=== PATIENT | female | born 1960 | race Two or more races ===

== ENCOUNTER 2020-07-04 11:31 | Outpatient (REF) | payer OTHER, SELFPAY ==
[2020-07-04 14:59] LABS: Alanine Aminotransferase 22 U/L (0-31); Albumin Level 4.5 g/dL (3.5-5.0); Alkaline Phosphatase 86 U/L (39-117); Anion Gap 14 (12-20); Aspartate Amino Transferase 24 U/L (5-31); Bilirubin Total 0.6 mg/dL (0.0-1.0); Blood Urea Nitrogen 13 mg/dL (9-16); Carbon Dioxide 28 mmol/L (22-29); Chloride 104 mmol/L (96-108); Cholesterol 159 mg/dL; Estimated Glomerular Filt Rate > 60; Glucose Fasting 75 mg/dL (60-99); HDL Cholesterol 49 mg/dL; LDL Cholesterol Calculated 79 mg/dl; Potassium 3.8 mmol/L (3.3-5.1); Sodium 142 mmol/L (135-145); Total Protein 7.3 g/dL (6.5-8.0); Triglycerides 159 mg/dL
== END 2020-07-04 11:32 | disposition home or self-care (01) ==
LOC: HO.10HDL 11:31
PROVIDERS: Visit Provider Internal Medicine
DX: E66.9 Obesity, unspecified (principal); E06.3 Autoimmune thyroiditis
CPT/HCPCS: 36415; 80053; 80061; 84443

== ENCOUNTER 2021-04-04 09:40 | Outpatient (REF) | payer OTHER, SELFPAY | END 2021-04-04 09:41 | disposition home or self-care (01) | LOC: HO.10HDL 09:40 | PROVIDERS: Visit Provider Internal Medicine | DX: E06.3 Autoimmune thyroiditis (principal) | CPT/HCPCS: 36415; 84443 ==

== ENCOUNTER 2021-06-09 08:16 | Outpatient (REF) | payer OTHER, SELFPAY ==
--- NOTE | ~2021-06-09 | MM_ITS ---
EXAMINATION: BONE DENSITOMETRY CLINICAL INDICATION: Asymptomatic menopausal state. COMPARISON: This is the patient's baseline examination. TECHNIQUE: Using a Smart[employer]ault DXA System (software version: 13.1) manufactured by [employer], dual-energy x-ray absorptiometry was performed of the lumbar spine and left hip. The images are of good technical quality. Summary results are attached. FINDINGS: AP SPINE L1-L4: BMD 1.133 g/cm2, Z-score 0.3, T-score -0.4, normal. LEFT FEMUR, NECK: BMD 0.782 g/cm2, Z-score -1.0, T-score -1.8, osteopenia. LEFT FEMUR, TOTAL: BMD 0.808 g/cm2, Z-score -1.1, T-score -1.6, osteopenia. IDENTIFIED RISK FACTORS: Rheumatoid arthritis. Secondary osteoporosis (hyperthyroid, early menopause). Hysterectomy. HISTORY OF FRACTURE: None listed. MEDICATIONS: None listed. MM/XR DEXA axial skeleton IMPRESSION: 1. DIAGNOSIS: Osteopenia based on the lowest T-score value of -1.8 in the femoral neck applying World Health Organization criteria. 2. 10-YEAR FRACTURE RISK PREDICTION, FRAX: Major osteoporotic fracture (clinical spine, forearm, hip or shoulder) 6.3%. Hip fracture 0.8%. 3. Treatment Recommendations: NOF guidelines recommend consideration for treatment in postmenopausal women and men age 50 and older presenting with the following: -A hip or vertebral (clinical or morphometric) fracture. -T-score less than or equal to -2.5 at the femoral neck or spine after appropriate evaluation to exclude secondary causes. -Low bone mass at the hip or spine and a 10-year fracture probability by FRAX of greater than or equal to 3% for hip fracture or greater than or equal to 20% for major osteoporotic fracture based on the [place] adapted WHO algorithm. 4. Other Recommendations: All treatment decisions require clinical judgment and consideration of individual patient factors, including patient preferences, comorbidities, previous drug use, risk factors not captured in the FRAX model (e.g. frailty, falls, vitamin D deficiency, increased bone turnover, interval significant decline in bone density) and possible under or overestimation of fracture risk by FRAX. Additional medical evaluation for secondary cause of low bone mineral density may be appropriate. FUTURE SCAN RECOMMENDATION: People with diagnosed cases of osteoporosis or at high risk for fracture should have regular bone mineral density tests. For patients eligible for Medicare, routine testing is allowed once every 2 years. The testing frequency can be increased to one year for patients who have rapidly progressing disease, those who are receiving or discontinuing medical therapy to restore bone mass, or have additional risk factors.
== END 2021-06-09 08:17 | disposition home or self-care (01) ==
LOC: HO.MAMMO 08:16
PROVIDERS: Visit Provider Internal Medicine
DX: Z13.820 Encounter for screening for osteoporosis (principal); M06.9 Rheumatoid arthritis, unspecified; E05.90 Thyrotoxicosis, unspecified without thyrotoxic crisis or storm; Z90.710 Acquired absence of both cervix and uterus; Z78.0 Asymptomatic menopausal state
CPT/HCPCS: 77080

== ENCOUNTER 2021-07-06 08:08 | Outpatient (REF) | payer OTHER, SELFPAY ==
--- NOTE | ~2021-07-06 | MM_ITS ---
EXAMINATION: MM SCREENING DIGITAL BREAST TOMOSYNTHESIS, BILATERAL CLINICAL INFORMATION: Screening. Asymptomatic. The lifetime risk of breast cancer based on the Tyrer-Cuzick Model is 5%. COMPARISON: Mammography: 10/21/2018, 09/12/2017, 09/09/2014 TECHNIQUE: Digital breast tomosynthesis is performed in both the craniocaudal and mediolateral oblique views along with computer-aided detection (CAD). Synthesized 2D images are generated from the tomosynthesis. Additional left MLO view is provided. FINDINGS: There are scattered areas of fibroglandular density (ACR BI-RADS breast composition Category b). There are no significant masses, abnormal calcifications, or other abnormalities. Parenchymal pattern is similar to prior studies. There are scattered shifting fibroglandular parenchymal densities overall similar to prior studies. No developing density or architectural abnormality. The axilla and skin contours are unremarkable. MM/MM tomosynthesis screening BI IMPRESSION: No mammographic evidence of malignancy. ASSESSMENT: BI-RADS 1: Negative RECOMMENDATION: Routine annual mammography screening. This patient's information was entered into a reminder system with a target due date for their next mammogram.
== END 2021-07-06 08:09 | disposition home or self-care (01) ==
LOC: HO.MAMMO 08:08
PROVIDERS: PCP Internal Medicine; Visit Provider Internal Medicine
DX: Z12.31 Encounter for screening mammogram for malignant neoplasm of breast (principal)
CPT/HCPCS: 77063; 77067

== ENCOUNTER → 2021-09-29 08:24 | Outpatient (BNVA) | payer OTHER, SELFPAY | PROVIDERS: PCP Internal Medicine; Referring Provider Internal Medicine; Visit Provider Nurse Practitioner Family | DX: Z12.11 Encounter for screening for malignant neoplasm of colon (principal) | CPT/HCPCS: 99202; 99212 ==

== ENCOUNTER 2021-10-12 09:12 | Outpatient (REF) | payer OTHER, SELFPAY ==
[2021-10-12 10:15] LABS: Alanine Aminotransferase 15 U/L (0-31); Albumin Level 4.3 g/dL (3.5-5.0); Alkaline Phosphatase 81 U/L (39-117); Anion Gap 10 (12-20); Aspartate Amino Transferase 20 U/L (5-31); Bilirubin Total 0.5 mg/dL (0.0-1.0); Blood Urea Nitrogen 11 mg/dL (9-16); Calcium 9.1 mg/dL (8.4-10.2); Carbon Dioxide 26 mmol/L (22-29); Chloride 107 mmol/L (96-108); Cholesterol 135 mg/dL; Estimated Glomerular Filt Rate > 60; Glucose Fasting 91 mg/dL (60-99); HDL Cholesterol 42 mg/dL; LDL Cholesterol Calculated 59 mg/dl; Sodium 139 mmol/L (135-145); Total Protein 6.9 g/dL (6.5-8.0); Triglycerides 170 mg/dL
[2021-10-12 10:51] LABS: Thyroid Stimulating Hormone 2.45 uIU/mL (0.32-4.0)
== END 2021-10-12 09:13 | disposition home or self-care (01) ==
LOC: HO.LAB 09:12
PROVIDERS: PCP Internal Medicine; Visit Provider Internal Medicine
DX: Z00.00 Encounter for general adult medical examination without abnormal findings (principal); E06.3 Autoimmune thyroiditis
CPT/HCPCS: 36415; 80053; 80061; 84443

== ENCOUNTER → 2022-02-19 08:14 | Outpatient (BNVA) | payer OTHER, SELFPAY | PROVIDERS: PCP Internal Medicine; Referring Provider Internal Medicine; Visit Provider Nurse Practitioner Family | DX: Z01.818 Encounter for other preprocedural examination (principal); R11.0 Nausea | CPT/HCPCS: 99212 ==

== ENCOUNTER 2022-03-01 08:44 | Outpatient (REF) | payer OTHER, SELFPAY ==
[2022-03-01 11:32] LABS: Thyroid Stimulating Hormone 3.87 uIU/mL (0.32-4.0)
== END 2022-03-01 08:45 | disposition home or self-care (01) ==
LOC: HO.10HDL 08:44
PROVIDERS: Visit Provider Internal Medicine
DX: E55.9 Vitamin D deficiency, unspecified (principal); E06.3 Autoimmune thyroiditis
CPT/HCPCS: 36415; 82306; 84443

== ENCOUNTER 2022-04-23 07:38 | Day surgery (SDC) | payer OTHER, SELFPAY ==
[2022-04-17 15:08] VITALS: BMI 36.2
--- NOTE | 2022-04-20 13:14 | HO.ANESPROP2 ---
Documented by User: Theodora Alvarado NP 04/20/22 13:15 HPI - Anesthesia Eval Consult details Narrative: 61yo F for Colonoscopy PMFSH Active Problems Active Problems: All Active Problems (Updated 10/12/21 @ 09:53 by Anu Andrea MD) Osteopenia (Acute) Hypovitaminosis D (Acute) Postmenopausal (Acute) Encounter for physical examination (Acute) Obese (Acute) Allergic rhinitis (Acute) Autoimmune thyroiditis (Acute) Past Medical History Medical History Allergic rhinitis Autoimmune thyroiditis Encounter for physical examination Hypovitaminosis D Obese Osteopenia Postmenopausal Family History Family History Father No problems noted. Mother Hypertension Diabetes Sister In good health Son In good health Daughter In good health Surgical History Surgical History H/O colonoscopy History of pterygium excision History of surgery History of unilateral salpingectomy Social History Social History Housing: House Alcohol intake: never Patient Tobacco Use Status: Former Tobacco user Tobacco use type: Cigarette Smoked in Last 30 Days: No e-Cigarette/Vaping Use: Never Used Second Hand Smoke Exposure: No Use of substances other than those prescribed or required for medical reasons: No Are you DNR?: No Advance Directives: No Advance Directives Information Provided: Yes service: No Current occupational status: disabled Cognitive needs: No Hearing needs: No Vision needs: No Meds Allergies Allergy/AdvReac Type Severity Reaction Status Date / Time aspirin Allergy Intermediate swelling Verified 04/23/22 07:48 diclofenac Allergy Intermediate palpitation Verified 04/23/22 07:48 s garlic Allergy Intermediate Swelling Verified 04/23/22 07:48 latex Allergy Intermediate Rash Verified 04/23/22 07:48 Exam Exam Date and Time: April 20, 2022 1314 Height,Weight and Vital Signs: Height 5 ft 1 in Weight 87.09 kg Pertinent Lab Results Pertinent Lab Results: Laboratory Tests 10/12/21 09:27 Sodium 139 Potassium 4.0 Chloride 107 Carbon Dioxide 26 BUN 11 Creatinine 0.64 Assessment and Plan Assessment Anesthesia Assessment: Chart Reviewed Documented by User: Jeovanny Hutchison MD 04/23/22 08:35 PMF Past Medical History Medical History Allergic rhinitis Autoimmune thyroiditis Encounter for physical examination Hypovitaminosis D Obese Osteopenia Postmenopausal Family History Family History Father No problems noted. Mother Hypertension Diabetes Sister In good health Son In good health Daughter In good health Family history of problems with anesthesia: No Surgical History Surgical History H/O colonoscopy History of pterygium excision History of surgery History of unilateral salpingectomy History of Problems with Anesthesia: No Social History Social History Housing: House Alcohol intake: never Patient Tobacco Use Status: Former Tobacco user Tobacco use type: Cigarette Smoked in Last 30 Days: No e-Cigarette/Vaping Use: Never Used Second Hand Smoke Exposure: No Use of substances other than those prescribed or required for medical reasons: No Are you DNR?: No Advance Directives: No Advance Directives Information Provided: Yes service: No Current occupational status: disabled Cognitive needs: No Hearing needs: No Vision needs: No Meds Allergies Allergy/AdvReac Type Severity Reaction Status Date / Time aspirin Allergy Intermediate swelling Verified 04/23/22 07:48 diclofenac Allergy Intermediate palpitation Verified 04/23/22 07:48 s garlic Allergy Intermediate Swelling Verified 04/23/22 07:48 latex Allergy Intermediate Rash Verified 04/23/22 07:48 Exam Airway Mallampati Class: II TM Dist: >3cm Neck ROM: Full Heart: rrr Lungs: clear Assessment and Plan Final Anesthetic Review Family History of Problems with Anesthesia: No History of Problems with Anesthesia: No NPO: Yes ASA Class: II Final Preanesthetic Review: No Changes in Pt Med Stat, Meds/Allgs Chart Reviewed, Consent Obtained/Reviewed and Anes Risks/Benef Reviewed Patient Risk: Intermediate Procedure Risk: Low Anesthetic Plan Anesthetic Plan: MAC: Disposition: Standard PACU
--- NOTE | 2022-04-23 07:46 | MHC.SHP ---
Pre-Procedural Eval Section A Date of Service: 04/23/22 The patient is an INPATIENT: No The History & Physical has been completed within 30 days and I have reviewed it.: No Section B Chief Complaint: screening Relevant Family History (Specify if Yes): No Relevant Social History: None Present Medications: see Short Stay Collaborative assessment Medical History: Significant History (Allergic rhinitis Autoimmune thyroiditis Encounter for physical examination Hypovitaminosis D Obese Osteopenia Postmenopausal) History of Previous Operations: Relevant previous surgery/procedure and date(s) (H/O colonoscopy History of pterygium excision History of surgery History of unilateral salpingectomy) Allergies: Allergies Allergy/AdvReac Type Severity Reaction Status Date / Time aspirin Allergy Intermediate swelling Verified 03/01/22 08:21 diclofenac Allergy Intermediate palpitation Verified 03/01/22 08:21 s garlic Allergy Intermediate Swelling Verified 03/01/22 08:21 latex Allergy Intermediate Rash Verified 03/01/22 08:21 Review of Systems Sugical H&P ROS: Negative: Constitution, Cardiovascular, Respiratory and Gastrointestinal Exam Surgical H&P Exam: Normal: Heart, Normal: Lungs, Normal: Extremities and Normal: Abdomen Plan Diagnosis/Plan: Unchanged I have reviewed the history and physical and performed a pertinent physical examination on my patient. No changes have occurred unless specified. Time Spent With Patient Time: Total time managing care of this patient today ____ minutes.
--- NOTE | 2022-04-23 07:47 | P.OP_ITS ---
Operative Note Operative Note Date of Service: 04/23/22 Narrative: Pre-op diagnosis: Colon cancer screening Post-op diagnosis:?other ( DIVERTICULOSIS, HEMORRHOIDS) Surgeon: Herrera Nicholas MD Anesthesia:?MAC COLONOSCOPY TILL CECUM Consent: Indications for the procedure and potential complications of bleeding, perforation, reaction to medications and missed diagnosis were discussed with the patient and informed consent was obtained. Instrument: Olympus PCF H 190 L variable stiffness pediatric colonoscope Monitoring: Vital signs and clinical assessment, intermittent blood pressure monitoring, continuous EKG monitoring, Pulse oximetry and Carbon Dioxide monitoring were done throughout the procedure. Colon withdrawl time was 8 minutes. Procedure: The patient was placed in the left lateral decubitis position and pre-procedure medications were administered. After a digital rectal examination of the ano-rectum, the video colonoscope was inserted into the rectum and advanced through the colon to the cecum. The colonoscope was slowly withdrawn in a retrograde panoramic fashion and the colon mucosa was carefully examined including a retroflexed view of the rectum. Findings and interventions are described below. Procedure Difficulty: Without difficulty Findings: Terminal Ileum: Not evaluated Cecum: Normal Ascending Colon: Normal Transverse Colon: Normal Descending Colon: Normal Sigmoid Colon: Moderate diverticulosis Rectum: Normal Ano-rectum: Small internal hemorrhoids Colon preparation: Good after some irrigation Impression and Post Procedure Diagnosis: Colonoscopy Findings: No polyps were detected Moderate diverticulosis seen in the sigmoid colon Small hemorrhoids on retroflexed exam. Plan: Patient has an appointment on 05/08/22 in the [facility] with Gina Tomlinson FNP- [facility]. Repeat Colonoscopy in 10 years. Above findings were reviewed with the patient and diverticulosis handout was given in the discharge area
--- NOTE | 2022-04-23 07:47 | PM.OP ---
Brief Operative Note Date of Service: 04/23/22 Pre-op diagnosis: Colon cancer screening Post-op diagnosis: other ( DIVERTICULOSIS, HEMORRHOIDS) Procedure: COLONOSCOPY TO CECUM Surgeon: Herrera Nicholas MD Anesthesia: MAC Was an Petroleum Engineering Professor used for this Procedure?: Yes Petroleum Engineering Professor: Jada Dominique Estimated blood loss (mL): 0 Pathology: none sent Condition: stable Disposition: PACU
[2022-04-23 07:50] VITALS: BMI 35.1
[2022-04-23 08:05] VITALS: BP 158/75; PULSE 75; RESP 16; TEMP 36.3; O2SAT 99
[2022-04-23] MEDS: Sodium Phosphate,Mono-Dibasic 133 ML ENEMA PR (08:05)
--- NOTE | 2022-04-23 08:30 | PC.NURSE ---
Patient arrived stating she Ate cheetos, doritos, and [place] cookies all day yesterday because she forgot . Enema administered as ordered by Dr. Nicholas and patient rested on left side for 10 minutes. Patient unable to void after enema administration, states I dont have to go . Okay to proceed with procedure per Dr. Nicholas.
[2022-04-23] MEDS: Lactated Ringers 1,000 ML 100 ML IVCONT (08:31)
[2022-04-23 09:09] VITALS: BP 102/59; PULSE 66; RESP 16; TEMP 36.4; O2SAT 97
[2022-04-23 09:22] VITALS: BP 123/72; PULSE 64; RESP 18; TEMP 36.2; O2SAT 99
== END 2022-04-23 10:07 | disposition home or self-care (01) ==
PROVIDERS: PCP Internal Medicine; Visit Provider Internal Medicine Gastroenterology
PROC: 0DJD8ZZ Inspection of Lower Intestinal Tract, Via Natural or Artificial Opening Endoscopic (ICD-10-PCS; CPT 45378; principal; 2022-04-23 08:30)
DX: Z12.11 Encounter for screening for malignant neoplasm of colon (principal); K57.30 Diverticulosis of large intestine without perforation or abscess without bleeding; K64.8 Other hemorrhoids; J30.9 Allergic rhinitis, unspecified; E06.3 Autoimmune thyroiditis; E55.9 Vitamin D deficiency, unspecified; M85.80 Other specified disorders of bone density and structure, unspecified site; E66.9 Obesity, unspecified; Z68.35 Body mass index [BMI] 35.0-35.9, adult; Z79.51 Long term (current) use of inhaled steroids; Z79.899 Other long term (current) drug therapy; Z88.8 Allergy status to other drugs, medicaments and biological substances; Z91.040 Latex allergy status; Z87.891 Personal history of nicotine dependence
CPT/HCPCS: 45378

== ENCOUNTER 2022-07-12 08:12 | Outpatient (REF) | payer OTHER, SELFPAY ==
--- NOTE | ~2022-07-12 | MM_ITS ---
EXAMINATION: MM SCREENING DIGITAL BREAST TOMOSYNTHESIS, BILATERAL CLINICAL INFORMATION: Screening. Asymptomatic. The lifetime risk of breast cancer based on the Tyrer-Cuzick Model is 7%. COMPARISON: Mammography: September 05, 2021 and studies dating back to September 09, 2014 TECHNIQUE: Digital breast tomosynthesis is performed in both the craniocaudal and mediolateral oblique views along with computer-aided detection (CAD). Synthesized 2D images are generated from the tomosynthesis. FINDINGS: There are scattered areas of fibroglandular density (ACR BI-RADS breast composition Category b). There are no significant masses, abnormal calcifications, or other abnormalities. Intramammary lymph node seen about the mid lateral left breast. MM/MM tomosynthesis screening BI IMPRESSION: No significant changes ASSESSMENT: BI-RADS 1: Negative RECOMMENDATION: Routine annual mammography screening. This patient's information was entered into a reminder system with a target due date for their next mammogram.
== END 2022-07-12 08:13 | disposition home or self-care (01) ==
LOC: HO.MAMMO 08:12
PROVIDERS: PCP Internal Medicine; Visit Provider Internal Medicine
DX: Z12.31 Encounter for screening mammogram for malignant neoplasm of breast (principal)
CPT/HCPCS: 77063; 77067

== ENCOUNTER 2022-10-25 08:41 | Outpatient (REF) | payer OTHER, SELFPAY ==
[2022-10-25 12:28] LABS: Thyroid Stimulating Hormone 3.53 uIU/mL (0.32-4.0); Vitamin D 25-OH Total 22.8 ng/mL (>30)
[2022-10-25 12:29] LABS: Anion Gap 8 (12-20)
[2022-10-25 12:34] LABS: Alanine Aminotransferase 18 U/L (0-31); Albumin Level 4.2 g/dL (3.5-5.0); Alkaline Phosphatase 81 U/L (39-117); Aspartate Amino Transferase 24 U/L (5-31); Bilirubin Total 0.6 mg/dL (0.0-1.0); Blood Urea Nitrogen 11 mg/dL (9-16); Calcium 8.9 mg/dL (8.4-10.2); Carbon Dioxide 30 mmol/L (22-29); Chloride 109 mmol/L (96-108); Cholesterol 151 mg/dL; Estimated Glomerular Filt Rate > 60; Glucose Fasting 81 mg/dL (60-99); HDL Cholesterol 53 mg/dL; LDL Cholesterol Calculated 83 mg/dl; Potassium 3.5 mmol/L (3.3-5.1); Sodium 143 mmol/L (135-145); Total Protein 7.2 g/dL (6.5-8.0); Triglycerides 76 mg/dL
== END 2022-10-25 08:42 | disposition home or self-care (01) ==
LOC: HO.10HDL 08:41
PROVIDERS: Visit Provider Internal Medicine
DX: Z00.00 Encounter for general adult medical examination without abnormal findings (principal); E06.3 Autoimmune thyroiditis; E55.9 Vitamin D deficiency, unspecified
CPT/HCPCS: 36415; 80053; 80061; 82306; 84443

== ENCOUNTER 2022-12-11 16:03 | Outpatient (AMB) | payer OTHER, SELFPAY ==
--- NOTE | 2022-12-11 16:20 | MHC.PC.OV ---
Vital Signs 12/11/22 16:21 12/11/22 19:04 Height 5 ft 1 in Weight 188 lb 8 oz BMI 35.6 BP 152/88 H 150/90 H Blood Pressure Location Lt brachial Lt brachial Position Sitting Sitting Pulse 65 Pulse Source Pulse Oximeter Pulse Oximetry (%) 98 Oxygen Delivery Method Room Air Intake Visit Reasons: thyroid Intake Note: Pt is for thyroid F/U Director Of Corporate Sponsorships Required: No Accompanied by: Self / Same As Patient Allergies aspirin Allergy (Intermediate, Verified 12/11/22 16:35) swelling diclofenac Allergy (Intermediate, Verified 12/11/22 16:35) palpitations garlic Allergy (Intermediate, Verified 12/11/22 16:35) Swelling latex Allergy (Intermediate, Verified 12/11/22 16:35) Rash Medication List - Last Reconciled 12/11/22 by Anu Andrea MD calcium carbonate 1,000 mg (2 x 500 mg calcium (1,250 mg)) PO DAILY 90 days cholecalciferol (vitamin D3) 25 mcg PO DAILY 90 days fluticasone propionate 50 mcg/actuation (Allergy Relief (fluticasone)) 1 spray intranasal DAILY 30 days levothyroxine 50 mcg PO QAM Tobacco use date assessed: 06/07/22 Dental Screening Dental Screen Date: 12/11/22 Did you have a dental visit in the last 12 months?: No Did you have a dental problem in the last 6 months where you did not have access to dental care?: No Was dental information given to patient?: Patient has dentist HPI HPI Comments History of Present Illness Details This is a 62-year-old female with autoimmune thyroiditis and osteopenia that comes today for follow-up on her conditions. TSH is normal. On calcium with vitamin-D for osteopenia. Denies any chest pain or shortness of breath. [facility] Medical History (Updated 12/11/22 @ 16:40 by Anu Andrea MD) Allergic rhinitis Autoimmune thyroiditis Encounter for physical examination Hypovitaminosis D Obese Osteopenia Postmenopausal Surgical History H/O colonoscopy History of pterygium excision History of surgery History of unilateral salpingectomy Family History Father No problems noted. Mother Hypertension Diabetes Sister In good health Son In good health Daughter In good health Social History Housing: House Alcohol intake: never Patient Tobacco Use Status: Former Tobacco user Tobacco use type: Cigarette e-Cigarette/Vaping Use: Never Used Second Hand Smoke Exposure: No service: No Current occupational status: disabled Cognitive needs: No Hearing needs: No Vision needs: No Questionnaire PHQ-9 Over the last 2 weeks, how often have you been bothered by any of the following problems? 1. Little interest or pleasure in doing things: not at all 2. Feeling down, depressed, or hopeless: not at all 3. Trouble falling or staying asleep, or sleeping too much: not at all 4. Feeling tired or having little energy: not at all 5. Poor appetite or overeating: not at all 6. Feeling bad about yourself - or that you are a failure or have let yourself or your family down: not at all 7. Trouble concentrating on things, such as reading the newspaper or watching television: not at all 8. Moving or speaking so slowly that other people could have noticed. Or the opposite - being so fidgety or restless that you have been moving around a lot more than usual: not at all 9. Thoughts that you would be better off or of hurting yourself in some way: not at all Total score: 0 Depression Screening Interpretation: Negative 70451 - PHQ-9 Billing: Yes Source: Developed by Drs. Kodak Thornton, Arianna Calle, Beny Smith and colleagues, with an educational sivakumar from [employer]. Thrive Questionnaire Date Thrive assessed: 12/11/22 I am a: Patient What is your living situation today?: I have a steady place to live Within the past 12 months, did the food you bought not last and you didn't have the money to get more?: Never true Within the past 12 months, did you worry whether your food would run out before you got money to buy more?: Never true Do you have trouble paying for medicines?: No Do you have trouble getting transportation to medical appointments?: No Do you have trouble paying your heating and electricity bill?: No Do you have trouble taking care of your child, family member or friend?: No Do you have trouble with day-to-day activities such as bathing, preparing meals, shopping, managing finances, etc.?: No Are you currently unemployed and looking for a job?: No Are you interested in more education?: No Currently or been in a relationship where the following occur: no concerns reported AUDIT C Alcohol Use Questionnaire (AUDIT-C) 1. How often do you have a drink containing alcohol?: Never 3. How often do you have six or more drinks on one occasion?: Never Total Score: 0 Score Reviewed/Action Taken: No MO-7 AMB Questionnaire MO-7 Date MO - 7 assessed: 12/11/22 Feeling nervous, anxious, or on edge: 0 = Not at all Not being able to stop or control worryin = Not at all Worrying too much about different things: 0 = Not at all Trouble relaxin = Not at all Being so restless that it is hard to sit still: 0 = Not at all Becoming easily annoyed or irritable: 0 = Not at all Feeling afraid as if something awful might happen: 0 = Not at all Total MO-7 score (0-4 normal; 5-9 mild; 10-14 moderate; 15-21 severe): 0 Source: Developed by Drs. Kodak Thornton, Arianna Calle, Beny Smith and colleagues, with an educational sivakumar from [employer]. MO-7 Assessment Billing MO-7 Assessment Tool: MO-7 Assessment 80389 Review of Systems Const All systems reviewed & are unremarkable except as noted in HPI and below Eyes Reports no additional complaints, Denies change in vision and Denies other visual disturbances Card Denies chest pain at rest, Denies chest pain with activity, Denies edema, Denies irregular heart rhythm, Denies claudication, Denies dyspnea, Denies dyspnea on exertion, Denies orthopnea, Denies paroxysmal nocturnal dyspnea and Denies slow heart rate Resp Denies cough, Denies dyspnea and Denies dyspnea on exertion GI Denies abdominal pain, Denies change in bowel habits, Denies excessive flatus, Denies nausea and Denies vomiting Denies urinary incontinence, Denies urinary hesitancy and Denies urinary urgency Musc Denies abnormal gait, Denies atrophy, Denies deformity and Denies limited range of motion Skin/Breast Denies bleeding lesions, Denies changing lesions and Denies rash Neuro Denies abnormal gait and Denies lack of coordination Physical exam (Primary Care) Vital Signs: Last Vital Signs Pulse 65 12/11/22 16:21 BP 152/88 H 12/11/22 16:21 Pulse Ox 98 12/11/22 16:21 Oxygen Delivery Method Room Air 12/11/22 16:21 BMI result Body Mass Index 35.6 Tobacco/Smoking Status: Tobacco use Status Tobacco use date assessed 06/07/22 12/11/22 16:21 Patient Tobacco Use Status Former Tobacco user 12/11/22 16:21 Tobacco use type Cigarette 12/11/22 16:21 e-Cigarette/Vaping Use Never Used 12/11/22 16:21 PHQ-9: PHQ-9 Score PHQ-9: Total score 0 12/11/22 16:39 Depression Screening Interpretation: Negative Thrive Assessment: Date of Thrive Assessment Date Thrive assessed 12/11/22 12/11/22 16:29 Currently or been in a relationship where the following occur: no concerns reported Eyes General: appearance normal, both eyes and all related structures Eyelids: Yes eyelids normal Conjunctivae: conjunctivae normal Neck Neck: Yes normal visual inspection and Yes supple Resp Effort & Inspection: normal respiratory effort Auscultation: clear to auscultation bilaterally Cardio Jugular venous distension: no JVD Rate: regular rate Rhythm: regular rhythm Heart sounds: S1 normal heart sound present and S2 normal heart sound present Extrem General: Yes full ROM Assessment and Plan Assessment & Plan (1) Autoimmune thyroiditis: Code(s): E06.3 - Autoimmune thyroiditis Plan: Continue levothyroxine. Monitor TSH. (2) Osteopenia: Code(s): M85.80 - Other specified disorders of bone density and structure, unspecified site Plan: Continue calcium and vitamin-D. Orders: Orders FL barium swallow modified Today R13.10 - Dysphagia, unspecified Comprehensive Moran. Panel Fast 6 Months E66.9 - Obesity, unspecified Lipid Panel 6 Months E66.9 - Obesity, unspecified Thyroid Stimulating Hormone 6 Months E06.3 - Autoimmune thyroiditis Vitamin D 25-OH Total 6 Months E55.9 - Vitamin D deficiency, unspecified Coding Level of Care Code Est Pt Level 3 (78836) Diagnoses Autoimmune thyroiditis E06.3 Osteopenia M85.80 Additional Codes MO-7 Assessment Billing - MO-7 Assessment Tool: MO-7 Assessment 12029 ([id number]) Time Spent (min) 18
[2022-12-11 16:21] VITALS: BP 152/88; PULSE 65; O2SAT 98; BMI 35.6
[2022-12-11 19:04] VITALS: BP 150/90
== END 2022-12-11 16:45 | disposition home or self-care (01) ==
LOC: HO.HMGH 16:04
PROVIDERS: PCP Internal Medicine; Visit Provider Internal Medicine
DX: E06.3 Autoimmune thyroiditis (principal); M85.80 Other specified disorders of bone density and structure, unspecified site
CPT/HCPCS: 99213

== ENCOUNTER 2023-06-17 09:27 | Outpatient (AMB) | payer OTHER, SELFPAY ==
--- NOTE | 2023-06-17 09:33 | MHC.PC.OV ---
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 Accompanied by: Self / Same As Patient Allergies aspirin Allergy (Intermediate, Verified 06/17/23 09:52) swelling diclofenac Allergy (Intermediate, Verified 06/17/23 09:52) palpitations garlic Allergy (Intermediate, Verified 06/17/23 09:52) Swelling latex Allergy (Intermediate, Verified 06/17/23 09:52) Rash Medication List - Last Reconciled 06/17/23 by Anu Andrea MD calcium carbonate 1,000 mg (2 x 500 mg calcium (1,250 mg)) PO DAILY 90 days cholecalciferol (vitamin D3) 25 mcg PO DAILY 90 days fluticasone propionate 50 mcg/actuation (Allergy Relief (fluticasone)) 1 spray intranasal DAILY 30 days levothyroxine 50 mcg PO QAM Tobacco use date assessed: 06/17/23 Dental Screening Dental Screen Date: 06/17/23 Did you have a dental visit in the last 12 months?: No Did you have a dental problem in the last 6 months where you did not have access to dental care?: No Was dental information given to patient?: Patient has dentist HPI HPI Comments History of Present Illness Details This is a 62-year-old female that comes for her physical exam. Last mammogram done 2022. Last colonoscopy done 2021. Has hysterectomy and no need for Pap smears. Last bone density was 2021 and this will be repeated. No chest pain or shortness of breath. [facility] Medical History Osteopenia Hypovitaminosis D Postmenopausal Encounter for physical examination Obese Allergic rhinitis Autoimmune thyroiditis Surgical History H/O colonoscopy History of pterygium excision History of surgery History of unilateral salpingectomy Family History Father No problems noted. Mother Hypertension Diabetes Sister In good health Son In good health Daughter In good health Social History Housing: House Alcohol intake: never Patient Tobacco Use Status: Former Tobacco user Tobacco use type: Cigarette e-Cigarette/Vaping Use: Never Used Second Hand Smoke Exposure: No service: No Current occupational status: disabled Cognitive needs: No Hearing needs: No Vision needs: No Questionnaire PHQ-9 Over the last 2 weeks, how often have you been bothered by any of the following problems? 1. Little interest or pleasure in doing things: not at all 2. Feeling down, depressed, or hopeless: not at all 3. Trouble falling or staying asleep, or sleeping too much: not at all 4. Feeling tired or having little energy: not at all 5. Poor appetite or overeating: not at all 6. Feeling bad about yourself - or that you are a failure or have let yourself or your family down: not at all 7. Trouble concentrating on things, such as reading the newspaper or watching television: not at all 8. Moving or speaking so slowly that other people could have noticed. Or the opposite - being so fidgety or restless that you have been moving around a lot more than usual: not at all 9. Thoughts that you would be better off or of hurting yourself in some way: not at all Total score: 0 Depression Screening Interpretation: Negative Depression Screening Done: Yes 68948 - PHQ-9 Billing: Yes Source: Developed by Drs. Kodak Thornton, Arianna Calle, Beny Smith and colleagues, with an educational sivakumar from [employer]. Thrive Questionnaire Date Thrive assessed: 06/17/23 I am a: Patient What is your living situation today?: I have a steady place to live Within the past 12 months, did the food you bought not last and you didn't have the money to get more?: Never true Within the past 12 months, did you worry whether your food would run out before you got money to buy more?: Never true Do you have trouble paying for medicines?: No Do you have trouble getting transportation to medical appointments?: No Do you have trouble paying your heating and electricity bill?: No Do you have trouble taking care of your child, family member or friend?: No Do you have trouble with day-to-day activities such as bathing, preparing meals, shopping, managing finances, etc.?: No Are you currently unemployed and looking for a job?: No Are you interested in more education?: No Please select the resources that you would like help with: None Currently or been in a relationship where the following occur: no concerns reported THRIVE Score: 0 AUDIT C Alcohol Use Questionnaire (AUDIT-C) 1. How often do you have a drink containing alcohol?: Never Total Score: 0 Score Reviewed/Action Taken: No MO-7 AMB Questionnaire MO-7 Date MO - 7 assessed: 06/17/23 Feeling nervous, anxious, or on edge: 0 = Not at all Not being able to stop or control worryin = Not at all Worrying too much about different things: 0 = Not at all Trouble relaxin = Not at all Being so restless that it is hard to sit still: 0 = Not at all Becoming easily annoyed or irritable: 0 = Not at all Feeling afraid as if something awful might happen: 0 = Not at all Total MO-7 score (0-4 normal; 5-9 mild; 10-14 moderate; 15-21 severe): 0 Source: Developed by Drs. Kodak Thornton, Arianna Calle, Beny Smith and colleagues, with an educational sivakumar from [employer]. MO-7 Assessment Billing MO-7 Assessment Tool: MO-7 Assessment 08436 Review of Systems Const All systems reviewed & are unremarkable except as noted in HPI and below Eyes Reports no additional complaints, Denies change in vision and Denies other visual disturbances Card Denies chest pain at rest, Denies chest pain with activity, Denies edema, Denies irregular heart rhythm, Denies claudication, Denies dyspnea, Denies dyspnea on exertion, Denies orthopnea, Denies paroxysmal nocturnal dyspnea and Denies slow heart rate Resp Denies cough, Denies dyspnea and Denies dyspnea on exertion GI Denies abdominal pain, Denies change in bowel habits, Denies excessive flatus, Denies nausea and Denies vomiting Denies urinary incontinence, Denies urinary hesitancy and Denies urinary urgency Musc Denies atrophy, Denies deformity and Denies limited range of motion Physical exam (Primary Care) Vital Signs: Last Vital Signs BP 130/80 06/17/23 09:34 BMI result Body Mass Index 35.1 Tobacco/Smoking Status: Tobacco use Status Tobacco use date assessed 06/17/23 06/17/23 09:47 Patient Tobacco Use Status Former Tobacco user 06/17/23 09:47 Tobacco use type Cigarette 06/17/23 09:47 e-Cigarette/Vaping Use Never Used 06/17/23 09:47 PHQ-9: PHQ-9 Score PHQ-9: Total score 0 06/17/23 09:47 Depression Screening Interpretation: Negative Thrive Assessment: Date of Thrive Assessment Date Thrive assessed 06/17/23 06/17/23 09:47 Currently or been in a relationship where the following occur: no concerns reported Const Orientation/consciousness: patient oriented x3 HENMT Head: Yes normal to inspection, Yes normocephalic and Yes atraumatic Ears: external ears normal Eyes General: appearance normal, both eyes and all related structures Eyelids: Yes eyelids normal Conjunctivae: conjunctivae normal Neck Neck: Yes normal visual inspection and Yes supple Resp Effort & Inspection: normal respiratory effort Auscultation: clear to auscultation bilaterally Cardio Jugular venous distension: no JVD Rate: regular rate Rhythm: regular rhythm Heart sounds: S1 normal heart sound present and S2 normal heart sound present GI Inspection: Yes normal to inspection Palpation (GI): Soft to palpation and nontender Auscultation: normal bowel sounds Skin General skin exam: no rashes or lesions noted Neuro General: patient oriented x3 and no focal motor deficits Extrem General: Yes full ROM Psych Appearance: grossly normal Assessment and Plan Assessment & Plan (1) Encounter for physical examination: Code(s): Z00.00 - Encounter for general adult medical examination without abnormal findings Plan: Repeat in a year. Orders: Orders XR DEXA axial skeleton Today N95.9 - Unspecified menopausal and perimenopausal disorder Lipid Panel Today Z00.00 - Encounter for general adult medical examination without abnormal findings Comprehensive [place]. Panel Fast Today Z00.00 - Encounter for general adult medical examination without abnormal findings Vitamin D 25-OH Total Today E55.9 - Vitamin D deficiency, unspecified Thyroid Stimulating Hormone Today E06.3 - Autoimmune thyroiditis UA CC w/rflx Micro + Cult Today R30.0 - Dysuria Medications: Refilled fluticasone propionate 50 mcg/actuation (Allergy Relief (fluticasone)) administer into each nostril 1 spray intranasal DAILY 30 days 16 grams 6RF calcium carbonate 1,000 mg (2 x 500 mg calcium (1,250 mg)) PO DAILY 90 days 180 tabs 1RF cholecalciferol (vitamin D3) 25 mcg PO DAILY 90 days 90 caps 1RF Coding Level of Care Code Est Pt Prev Care 40-64y(26936) Diagnoses Encounter for physical examination Z00.00 Additional Codes MO-7 Assessment Billing - MO-7 Assessment Tool: MO-7 Assessment 16987 ([id number]) Time Spent (min) 33
[2023-06-17 09:34] VITALS: BP 130/80; BMI 35.1
== END 2023-06-17 10:05 | disposition home or self-care (01) ==
PROVIDERS: Visit Provider Internal Medicine
DX: Z00.00 Encounter for general adult medical examination without abnormal findings (principal)
CPT/HCPCS: 99396

== ENCOUNTER 2023-07-12 09:13 | Outpatient (REF) | payer OTHER, SELFPAY ==
[2023-07-12 11:48] LABS: Appearance Urine Clear; Color Urine Yellow; Glucose Urine UA Negative (Negative); Leukocyte Esterase Urine Negative (Negative); Nitrite Urine Negative (Negative); PH 6.5 (5.0-9.0); Specific Gravity - Urine 1.025 (1.005-1.025); Urine Blood Negative (Negative); Urine Ketones Negative (Negative); Urine Protein Negative (Neg-Trace)
[2023-07-12 13:12] LABS: Alanine Aminotransferase 14 U/L (0-31); Albumin Level 4.3 g/dL (3.5-5.0); Alkaline Phosphatase 86 U/L (39-117); Anion Gap 10 (12-20); Aspartate Amino Transferase 21 U/L (5-31); Bilirubin Total 0.4 mg/dL (0.0-1.0); Blood Urea Nitrogen 14 mg/dL (9-16); Calcium 9.2 mg/dL (8.4-10.2); Carbon Dioxide 30 mmol/L (22-29); Chloride 106 mmol/L (96-108); Cholesterol 139 mg/dL (<200); Estimated Glomerular Filt Rate > 60; Glucose Fasting 84 mg/dL (60-99); HDL Cholesterol 45 mg/dL (>40); LDL Cholesterol Calculated 76 mg/dL (<100); Sodium 142 mmol/L (135-145); Thyroid Stimulating Hormone 2.83 uIU/mL (0.32-4.0); Total Protein 7.4 g/dL (6.5-8.0); Triglycerides 90 mg/dL (<150); Vitamin D 25-OH Total 22.4 ng/mL (>30)
== END 2023-07-12 09:14 | disposition home or self-care (01) ==
LOC: HO.10HDL 09:13
PROVIDERS: Visit Provider Internal Medicine
DX: Z00.00 Encounter for general adult medical examination without abnormal findings (principal); E55.9 Vitamin D deficiency, unspecified; E06.3 Autoimmune thyroiditis; R30.0 Dysuria
CPT/HCPCS: 36415; 80053; 80061; 81003; 82306; 84443

== ENCOUNTER 2023-07-18 08:11 | Outpatient (REF) | payer OTHER, SELFPAY ==
--- NOTE | ~2023-07-18 | MM_ITS ---
EXAMINATION: MM SCREENING DIGITAL BREAST TOMOSYNTHESIS, BILATERAL CLINICAL INFORMATION: Screening. Asymptomatic. COMPARISON: Mammography: 07/12/2022, 07/06/2021, 10/21/2018, 09/12/2017, 09/09/2014 TECHNIQUE: Digital breast tomosynthesis is performed in both the craniocaudal and mediolateral oblique views along with computer-aided detection (CAD). Synthesized 2D images are generated from the tomosynthesis. FINDINGS: There are scattered areas of fibroglandular density (ACR BI-RADS breast composition Category b). There are no significant masses, abnormal calcifications, or other abnormalities. Parenchymal pattern is similar to prior studies. There are scattered shifting fibroglandular parenchymal densities overall similar to prior studies. No developing density or architectural abnormality. The axilla and skin contours are unremarkable. MM/MM tomosynthesis screening BI IMPRESSION: No mammographic evidence of malignancy. Stable examination. ASSESSMENT: BI-RADS BI-RADS 1 - Negative RECOMMENDATION: Routine annual mammography screening. 1 year F/U This examination should not preclude the clinical evaluation of a suspicious palpable abnormality. This patient's information was entered into a reminder system with a target due date for their next mammogram.
--- NOTE | ~2023-07-18 | MM_ITS ---
EXAMINATION: BONE DENSITOMETRY CLINICAL INDICATION: Menopause. COMPARISON: Baseline BD dated 06/09/2021. TECHNIQUE: Using a [employer]ile DXA System (software version: 13.1) manufactured by [employer], dual-energy x-ray absorptiometry was performed of the lumbar spine and left hip. The images are of good technical quality. Summary results are attached. FINDINGS: LEFT FEMUR, NECK: Current: BMD 0.979 g/cm2, Z-score 0.5, T-score -0.4, normal. Baseline: BMD 0.782 g/cm2. LEFT FEMUR, TOTAL: Current: BMD 0.981 g/cm2, Z-score 0.4, T-score -0.2, normal, 21.4% increase from baseline (<5% change is not significant). Baseline: BMD 0.808 g/cm2. AP SPINE L1-L3 (excluding L4): The data of L1-L4 has been changed to exclude the L4 vertebral body, because degenerative sclerosis at this level may cause overestimation of lumbar spine density. Current: BMD 1.134 g/cm2, Z-score 0.5, T-score -0.3, normal, 2.3% increase from baseline (<5% change is not significant). Baseline: BMD 1.108 g/cm2. IDENTIFIED RISK FACTORS: Early menopause, hysterectomy, osteoporosis, secondary osteoporosis. HISTORY OF FRACTURE: None listed. MEDICATIONS: Calcium, vitamin D. MM/XR DEXA axial skeleton IMPRESSION: 1. DIAGNOSIS: Normal bone density based on the lowest T-score value of -0.4 in the femoral neck applying World Health Organization criteria. 2. 10-YEAR FRACTURE RISK PREDICTION, FRAX: According to the guidelines, FRAX calculation should only be performed on patients in the osteopenia bone density category. Therefore, FRAX was not performed on this patient. 3. Treatment Recommendations: NOF guidelines recommend consideration for treatment in postmenopausal women and men age 50 and older presenting with the following: -A hip or vertebral (clinical or morphometric) fracture. -T-score less than or equal to -2.5 at the femoral neck or spine after appropriate evaluation to exclude secondary causes. -Low bone mass at the hip or spine and a 10-year fracture probability by FRAX of greater than or equal to 3% for hip fracture or greater than or equal to 20% for major osteoporotic fracture based on the [place] adapted WHO algorithm. 4. Other Recommendations: All treatment decisions require clinical judgment and consideration of individual patient factors, including patient preferences, comorbidities, previous drug use, risk factors not captured in the FRAX model (e.g. frailty, falls, vitamin D deficiency, increased bone turnover, interval significant decline in bone density) and possible under or overestimation of fracture risk by FRAX. FUTURE SCAN RECOMMENDATION: People with diagnosed cases of osteoporosis or at high risk for fracture should have regular bone mineral density tests. For patients eligible for Medicare, routine testing is allowed once every 2 years. The testing frequency can be increased to one year for patients who have rapidly progressing disease, those who are receiving or discontinuing medical therapy to restore bone mass, or have additional risk factors.
== END 2023-07-18 08:12 | disposition home or self-care (01) ==
LOC: HO.MAMMO 08:11
PROVIDERS: Visit Provider Internal Medicine
DX: Z12.31 Encounter for screening mammogram for malignant neoplasm of breast (principal); Z13.820 Encounter for screening for osteoporosis; Z78.0 Asymptomatic menopausal state
CPT/HCPCS: 77063; 77067; 77080

== ENCOUNTER → 2023-07-18 08:15 | Outpatient (BNV) | payer OTHER, SELFPAY | PROVIDERS: Visit Provider Radiology Diagnostic Radiology | DX: Z12.31 Encounter for screening mammogram for malignant neoplasm of breast (principal) | CPT/HCPCS: 77063; 77067 ==

== ENCOUNTER 2023-08-28 08:01 | Outpatient (REF) | payer OTHER, SELFPAY ==
[2023-09-02 21:12] LABS: HPV mRNA E6/E7 rflx Not Detected (Not Detected)
== END 2023-08-28 08:02 | disposition home or self-care (01) ==
LOC: HO.LNP 08:01
PROVIDERS: Visit Provider Obstetrics & Gynecology
DX: N95.0 Postmenopausal bleeding (principal); N84.1 Polyp of cervix uteri
CPT/HCPCS: 87624; 88142; 99202

== ENCOUNTER 2023-08-28 08:01 | Outpatient (AMB) | payer OTHER, SELFPAY ==
[2023-08-28 08:17] VITALS: BP 126/80; BMI 35.0
--- NOTE | 2023-08-28 08:17 | A.OFFVIS_ITS ---
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 The patient is status post supracervical hysterectomy in 1999 for myomas Last co testing many years 24 years ago Last screening mammogram BI-RADS 1 in 07/27 PFS Medical History (Updated 08/28/23 @ 08:42 by Mac Erickson MD) Osteopenia Hypovitaminosis D Postmenopausal Encounter for physical examination Obese Allergic rhinitis Autoimmune thyroiditis Surgical History (Updated 08/28/23 @ 08:39 by Mac Erickson MD) H/O hysterectomy for benign disease H/O colonoscopy History of pterygium excision History of surgery Family History Father No problems noted. Mother Hypertension Diabetes Sister In good health Son In good health Daughter In good health Social History Housing: House Alcohol intake: never Patient Tobacco Use Status: Former Tobacco user Tobacco use type: Cigarette e-Cigarette/Vaping Use: Never Used Second Hand Smoke Exposure: No service: No Current occupational status: disabled Cognitive needs: No Hearing needs: No Vision needs: No Review of Systems Const All systems reviewed & are unremarkable except as noted in HPI and below Physical Exam Vital Signs: Last Vital Signs BP 126/80 08/28/23 08:17 BMI result Body Mass Index 35.0 General: Yes no CVA tenderness External Female Exam: normal external appearance and normal appearance of the urethra Speculum Exam - Vagina: normal appearance of the vagina, normal palpation, no lesions and no masses Speculum Exam - Cervix: no lesions, no masses, nontender and Other cervical findings present (2x 2-3cm endocervical polyp) Bimanual exam- vagina & uterus: normal bimanual exam, normal palpation, No Cervical tenderness present, uterus absent and other Bimanual Exam- Adnexa, other: normal adnexae Back/Spine/Pelvis Back: no CVA tenderness Assessment & Plan Assessment & Plan (1) Endocervical polyp: Comment: Two large endocervical polyps Status post supracervical hysterectomy Code(s): N84.1 - Polyp of cervix uteri Category: Medical Plan: Co testing done, will wait for the results of the co testing and schedule preop endocervical polypectomies in the operating room under anesthesia since the polyps are large with possible large feeding vessels , and risk of bleeding during a polypectomy in the office. Explained to the patient the finding on the exam indication for the procedure. All questions answered, the patient verbalized understanding. Instructions given the patient to schedule a 2 week follow-up appointment to review the co testing results /preop visit for cervical polypectomies. All questions answered, the patient verbalized understanding Orders: Orders Pap Smear Today N95.0 - Postmenopausal bleeding Coding Level of Care Code New Pt Level 3 (80415) Diagnoses Endocervical polyp N84.1
== END 2023-08-28 09:01 | disposition home or self-care (01) ==
LOC: HO.HWS 08:01
PROVIDERS: Visit Provider Obstetrics & Gynecology
DX: N84.1 Polyp of cervix uteri (principal)
CPT/HCPCS: 99203

== ENCOUNTER 2023-09-24 08:13 | Outpatient (AMB) | payer OTHER, SELFPAY ==
--- NOTE | 2023-09-24 08:24 | A.OFFVIS_ITS ---
Vital Signs 09/24/23 08:30 Height 5 ft 1 in Weight 185 lb 3.013 oz BMI 35.0 BP 110/78 Intake Visit Reasons: Follow up/ ? 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 Present Accompanied by: Self / Same As Patient Allergies aspirin Allergy (Intermediate, Verified 09/24/23 08:31) swelling diclofenac Allergy (Intermediate, Verified 09/24/23 08:31) palpitations garlic Allergy (Intermediate, Verified 09/24/23 08:31) Swelling latex Allergy (Intermediate, Verified 09/24/23 08:31) Rash Is last menstrual period known: Yes Last menstrual period: 03/03/20 Post menopausal: Yes Patient : No Do you need a note to return to daycare/school/sports/work: Yes (for surgery on saturday) HPI Comments Details: Presenting for follow-up up to discuss the procedure endocervical polypectomy. Co testing was negative [facility] Medical History Osteopenia Hypovitaminosis D Postmenopausal Encounter for physical examination Obese Allergic rhinitis Autoimmune thyroiditis Surgical History H/O hysterectomy for benign disease H/O colonoscopy History of pterygium excision History of surgery Family History Father No problems noted. Mother Hypertension Diabetes Sister In good health Son In good health Daughter In good health Social History Housing: House Alcohol intake: never Patient Tobacco Use Status: Former Tobacco user Tobacco use type: Cigarette e-Cigarette/Vaping Use: Never Used Second Hand Smoke Exposure: No service: No Current occupational status: disabled Cognitive needs: No Hearing needs: No Vision needs: No Female Reproductive History Menstrual Date of last menstrual period: 03/03/20 Total pregnancies: 2 Full term: 2 Review of Systems Const All systems reviewed & are unremarkable except as noted in HPI and below Reports as per HPI and Reports no additional complaints Card Reports as per HPI and Reports no additional complaints Resp Reports as per HPI and Reports no additional complaints GI Reports as per HPI and Reports no additional complaints Reports as per HPI Physical Exam Vital Signs: Last Vital Signs BP 110/78 09/24/23 08:30 BMI result Body Mass Index 35.0 Assessment & Plan Assessment & Plan (1) Endocervical polyp: Comment: Two large endocervical polyps Status post supracervical hysterectomy Code(s): N84.1 - Polyp of cervix uteri Category: Medical Plan: Recommended endocervical polypectomy under anesthesia given the size of the polyp possible need for electrocauterization. The patient has brain tumor and is in the process of scheduling her surgery, she would like to check with her primary care physician and decide when to schedule the procedure, I explained to the patient that polypectomy is to rule out endocervical polyp precancer or cancer and therefore it is important not to delay the treatment and in order not to affect the prognosis in case of abnormal pathology. All questions answered, the patient verbalized understanding and states that she will call back with her decision as soon as possible Coding Level of Care Code Est Pt Level 3 (39202) Diagnoses Endocervical polyp N84.1
[2023-09-24 08:30] VITALS: BP 110/78; BMI 35.0
== END 2023-09-24 08:47 | disposition home or self-care (01) ==
LOC: HO.HWS 08:13
PROVIDERS: Visit Provider Obstetrics & Gynecology
DX: N84.1 Polyp of cervix uteri (principal)
CPT/HCPCS: 99213

== ENCOUNTER → 2023-09-24 08:13 | Outpatient (BNVA) | payer OTHER, SELFPAY | PROVIDERS: Visit Provider Obstetrics & Gynecology | DX: N84.1 Polyp of cervix uteri (principal) | CPT/HCPCS: 99212 ==

== ENCOUNTER 2024-06-23 09:07 | Outpatient (AMB) | payer MEDICARE, MEDICAID, SELFPAY ==
--- NOTE | 2024-06-23 09:17 | MHC.PC.OV ---
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 Language: Triage Technician Name: Anu Andrea MD Information Interpreted: non-clinical & clinical Accompanied by: Self / Same As Patient Allergies aspirin Allergy (Intermediate, Verified 06/23/24 09:41) swelling diclofenac Allergy (Intermediate, Verified 06/23/24 09:41) palpitations garlic Allergy (Intermediate, Verified 06/23/24 09:41) Swelling latex Allergy (Intermediate, Verified 06/23/24 09:41) Rash Medication List - Last Reconciled 06/23/24 by Anu Andrea MD calcium carbonate 1,000 mg (2 x 500 mg calcium (1,250 mg)) PO DAILY 90 days cholecalciferol (vitamin D3) 25 mcg PO DAILY 90 days fluticasone propionate 50 mcg/actuation (Allergy Relief (fluticasone)) 1 spray intranasal DAILY 30 days levothyroxine 50 mcg PO QAM Tobacco use date assessed: 06/23/24 Fall risk assessment: 1 Fall in past year Last assessed Fall Risk: 06/23/24 Dental Screening Dental Screen Date: 06/23/24 Did you have a dental visit in the last 12 months?: No Did you have a dental problem in the last 6 months where you did not have access to dental care?: No Was dental information given to patient?: Patient has dentist HPI HPI Comments History of Present Illness Details The patient is a 64-year-old female presenting for an annual physical examination. She has a medical history significant for autoimmune thyroiditis, which requires regular monitoring, although she reports no current medications. She underwent a hysterectomy, surgery on her left eye, and a childhood surgery for a head tumor. Recently, a head lesion was removed about seven months ago, with a recommendation for further removal due to the presence of another lesion. She recalls an incident on November 06 where she experienced shortness of breath and difficulty walking associated with chest pain, which resolved without medical intervention. No regular medication apart from thyroid replacement and maintains a generally good state of health. Prior screenings for osteoporosis reflected normal bone density as of 2023. Her colonoscopy was performed in 2021, and the patient was informed that a DEXA scan should be repeated in 2025. She denies consuming alcohol or smoking currently, though she has a history of smoking. - Mammogram: last completed in 2023, results normal - DEXA scan: last completed in 2023, result was normal; next due in 2025 - Pap smear: completed last year, results normal - Colonoscopy: done in 2021 - Pneumonia vaccine recommended due to age - Thyroid function labs to be repeated [facility] Medical History Osteopenia Hypovitaminosis D Postmenopausal Encounter for physical examination Obese Allergic rhinitis Autoimmune thyroiditis Surgical History H/O hysterectomy for benign disease H/O colonoscopy History of pterygium excision History of surgery Family History Father No problems noted. Mother Hypertension Diabetes Sister In good health Son In good health Daughter In good health Social History Housing: House Alcohol intake: never Patient Tobacco Use Status: Former Tobacco user Tobacco use type: Cigarette e-Cigarette/Vaping Use: Never Used Second Hand Smoke Exposure: No service: No Current occupational status: disabled Cognitive needs: No Hearing needs: No Vision needs: No Questionnaire PHQ-9 Over the last 2 weeks, how often have you been bothered by any of the following problems? 1. Little interest or pleasure in doing things: not at all 2. Feeling down, depressed, or hopeless: not at all 3. Trouble falling or staying asleep, or sleeping too much: not at all 4. Feeling tired or having little energy: not at all 5. Poor appetite or overeating: not at all 6. Feeling bad about yourself - or that you are a failure or have let yourself or your family down: not at all 7. Trouble concentrating on things, such as reading the newspaper or watching television: not at all 8. Moving or speaking so slowly that other people could have noticed. Or the opposite - being so fidgety or restless that you have been moving around a lot more than usual: not at all 9. Thoughts that you would be better off or of hurting yourself in some way: not at all Total score: 0 Depression Screening Interpretation: Negative Depression Screening Done: Yes 55192 - PHQ-9 Billing: Yes Source: Developed by Drs. Kodak Thornton, Arianna Calle, Beny Smith and colleagues, with an educational sivakumar from [employer]. Thrive Questionnaire Date Thrive assessed: 06/23/24 I am a: Patient What is your living situation today?: I have a steady place to live Within the past 12 months, did the food you bought not last and you didn't have the money to get more?: I choose not to answer this question Within the past 12 months, did you worry whether your food would run out before you got money to buy more?: I choose not to answer this question Do you have trouble paying for medicines?: I choose not to answer this question Do you have trouble getting transportation to medical appointments?: I choose not to answer this question Do you have trouble paying your heating and electricity bill?: I choose not to answer this question Do you have trouble taking care of your child, family member or friend?: I choose not to answer this question Do you have trouble with day-to-day activities such as bathing, preparing meals, shopping, managing finances, etc.?: I choose not to answer this question Are you currently unemployed and looking for a job?: I choose not to answer this question Are you interested in more education?: I choose not to answer this question Please select the resources that you would like help with: None Currently or been in a relationship where the following occur: I choose not to answer THRIVE Score: 0 AUDIT C Alcohol Use Questionnaire (AUDIT-C) 1. How often do you have a drink containing alcohol?: Never Total Score: 0 Score Reviewed/Action Taken: No MO-7 AMB Questionnaire MO-7 Date MO - 7 assessed: 06/23/24 Feeling nervous, anxious, or on edge: 0 = Not at all Not being able to stop or control worryin = Not at all Worrying too much about different things: 0 = Not at all Trouble relaxin = Not at all Being so restless that it is hard to sit still: 0 = Not at all Becoming easily annoyed or irritable: 0 = Not at all Feeling afraid as if something awful might happen: 0 = Not at all Total MO-7 score (0-4 normal; 5-9 mild; 10-14 moderate; 15-21 severe): 0 Source: Developed by Drs. Kodak Thornton, Arianna Calle, Beny Smith and colleagues, with an educational sivakumar from [employer]. MO-7 Assessment Billing MO-7 Assessment Tool: MO-7 Assessment 36581 Review of Systems Const All systems reviewed & are unremarkable except as noted in HPI and below Card Denies chest pain at rest, Reports chest pain with activity, Denies edema, Denies irregular heart rhythm, Denies claudication, Denies dyspnea, Denies dyspnea on exertion, Denies orthopnea, Denies paroxysmal nocturnal dyspnea and Denies slow heart rate Resp Denies cough, Denies dyspnea and Denies dyspnea on exertion GI Denies abdominal pain, Denies change in bowel habits, Denies excessive flatus, Denies nausea and Denies vomiting Denies urinary incontinence, Denies urinary hesitancy and Denies urinary urgency Musc Denies atrophy, Denies deformity, Reports arthralgias and Denies limited range of motion Skin/Breast Denies bleeding lesions, Denies changing lesions and Denies rash Physical exam (Primary Care) Vital Signs: Last Vital Signs BP 136/80 06/23/24 09:18 BMI result Body Mass Index 35.9 BMI Assessment/Plan discussion: High BMI High, discussed plan: lifestyle, weight reduction, dietary and physical activity Tobacco/Smoking Status: Tobacco use Status Tobacco use date assessed 06/23/24 06/23/24 09:27 Patient Tobacco Use Status Former Tobacco user 06/23/24 09:27 Tobacco use type Cigarette 06/23/24 09:27 e-Cigarette/Vaping Use Never Used 06/23/24 09:27 PHQ-9: PHQ-9 Score PHQ-9: Total score 0 06/23/24 09:45 Depression Screening Interpretation: Negative Thrive Assessment: Date of Thrive Assessment Date Thrive assessed 06/23/24 06/23/24 09:27 Currently or been in a relationship where the following occur: I choose not to answer HENMT Head: Yes normal to inspection, Yes normocephalic and Yes atraumatic Ears: external ears normal Eyes General: appearance normal, both eyes and all related structures Eyelids: Yes eyelids normal Conjunctivae: conjunctivae normal Neck Neck: Yes normal visual inspection and Yes supple Resp Effort & Inspection: normal respiratory effort Auscultation: clear to auscultation bilaterally Cardio Jugular venous distension: no JVD Rate: regular rate Rhythm: regular rhythm Heart sounds: S1 normal heart sound present and S2 normal heart sound present GI Inspection: Yes normal to inspection Palpation (GI): Soft to palpation and nontender Auscultation: normal bowel sounds Skin General skin exam: no rashes or lesions noted Neuro General: no focal motor deficits Extrem General: Yes full ROM Psych Appearance: grossly normal Office Procedures Flu Questionnaire Does the patient have a severe egg allergy?: No Immunizations Fluarix Triv 0813-1895 (PF) 45 mcg (15 mcg x 3)/0.5 mL IM syringe Performing Provider: Anu Andrea MD Performing Location: [facility] Documented (not given) by: RAMOS Jameson on 06/23/24 09:32 Reason Not Given: Patient Refused pneumoc 20-jesus conj-dip cr(PF) 0.5 mL IM syringe Performing Provider: Anu Andrea MD Performing Location: [facility] Administered by: RAMOS Jameson on 06/23/24 09:59 Dose Route Admin Location Dispensed Lot Number Expiration Date [place] [facility] 0.5 mL IM Right Deltoid 0.5 mL [id number] 08/04/25 [id number] WYETH/PFIZER VIS Given Date VIS Provided VIS Publication Date 06/23/24 Single Vaccine 21 Eligibility Eligibility Date Funding Source Not [facility] Eligible 06/23/24 Private Coding Level of Care Code Est Pt Level 3 (61904) Est Pt Prev Care >65y(79583) Diagnoses Encounter for physical examination Z00.00 Chest pain on breathing R07.1 Chest pain type: chest pain on breathing Additional Codes PHQ-9 - 78315 - PHQ-9 Billing: Yes ([id number]) MO-7 Assessment Billing - MO-7 Assessment Tool: MO-7 Assessment 22109 ([id number]) Time Spent (min) 33 Assessment & Plan Assessment & Plan (1) Encounter for physical examination: Code(s): Z00.00 - Encounter for general adult medical examination without abnormal findings Category: Medical (2) Chest pain: Code(s): R07.9 - Chest pain, unspecified Category: Medical Qualifiers: Chest pain type: chest pain on breathing Qualified Code(s): R07.1 - Chest pain on breathing Plan - Recommend thyroid function tests due to autoimmune thyroiditis. - Discuss repeat DEXA scan in 2025 for osteoporosis monitoring. - Encourage administration of the pneumonia vaccine given the patient's age and hesitancy towards vaccines. - Consider repeat lesion removal procedure as discussed. - Advise laboratory tests to assess current health status, including thyroid panel and metabolic profile. Patient was informed and verbally consented to the use of an ambient scribe for clinic note documentation during this visit. During the visit, I emphasized the importance of regular health maintenance given the patient's age and medical history. We discussed autoimmune thyroiditis and the need for thyroid function monitoring, alongside osteoporosis screening intervals. I elaborated on the benefits of the pneumonia vaccine for those aged 65 and older. While the patient expressed anxiety regarding vaccinations, she was willing to receive it with reassurance about the safety and necessity. Discussed potential need for dermatological consultation for head lesions. Recommended labs include a thyroid panel and comprehensive metabolic profile. I also assured her of continued support in managing her health. Orders: Orders Pneumococcal 20 Immunization Today Z23 - Encounter for immunization ECG 12 lead EKG Today R07.9 - Chest pain, unspecified Comprehensive [place]. Panel Fast Today Z00.00 - Encounter for general adult medical examination without abnormal findings Thyroid Stimulating Hormone Today E06.3 - Autoimmune thyroiditis Influenza 2264-2275 Immunization Today Z23 - Encounter for immunization Lipid Panel Today Z00.00 - Encounter for general adult medical examination without abnormal findings Vitamin D 25-OH Total Today E55.9 - Vitamin D deficiency, unspecified Medications: Refilled fluticasone propionate 50 mcg/actuation (Allergy Relief (fluticasone)) administer into each nostril 1 spray intranasal DAILY 30 days 16 grams 6RF Patient Instructions: - Schedule thyroid function tests. - Plan for a repeat DEXA scan when due in 2025. - Receive pneumonia vaccination as recommended. - Continue monitoring for new lesions on the head and consider further removal. - Follow up with regular appointments for health maintenance. - Maintain current healthy lifestyle and attend to any new health concerns promptly.
[2024-06-23 09:18] VITALS: BP 136/80; BMI 35.9
--- OUTSIDE RECORDS SUMMARY | 2024-06-23 09:41 | XMS_ITS | Clinical Summary ---
Author Organization [employer] Address [address] [place] [address] Care Team Providers Care Tennis Racket Repairer Name Role Phone Unavailable Primary Care Provider Unavailabl e Social History Tobacco Use Types Packs/Day Years Used Date Smoking Tobacco: Never Assessed Comments Unknown Sex and Gender Information Value Date Recorded Sex Assigned at Female 03/05/2022 10:20 AM EDT Legal Sex Female 10:20 AM EDT Gender Identity Female 03/05/2022 10:20 AM EDT Sexual Orientation Straight 03/05/2022 10 :20 AM EDT Plan of Treatment Health Maintenance Due Date Last Done Comments CT Colonography 1959 Colonoscopy 1959 Colorectal Cancer Screening 1959 Depression Screening 1959 FIT DNA/Cologuard 1959 FIT 1959 FOBT 1959 Sigmoidoscopy 1959 Alcohol/Substance Use Screening 1971 Tobacco Screening 1971 DTaP/Tdap/Td Vaccines (1 - Tdap) 1978 Pap Smear 1980 Cervical Cancer Screening 1989 HPV/Cotest 1989 Mammogram 1999 Pneumococcal Vaccine: 50+ Ye ars (1 of 1 - PCV) 2009 Zoster Vaccines (1 of 2) 2009 COVID-19 Vaccine ( - 2023-2 5 season) 2024 Influenza Vaccine (#1) 2024 RSV Patients and Pa tients Aged 60 years or older (1 - 1-dose 75+ series) 2034 HIB Vaccines Aged Out No longer eligi ble based on patient's age to complete this topic HPV Vaccines Aged Out No longer eligi ble based on patient's age to complete this topic Hepatitis A Vaccines Aged Out No long er eligible based on patient's age to complete this topic Hepatitis B Vaccines Aged Out No long er eligible based on patient's age to complete this topic IPV Vaccines Aged Out No longer eligi ble based on patient's age to complete this topic Meningococcal Vaccine Aged Out No elina saleem eligible based on patient's age to complete this topic Pneumococcal Vaccine: Pediat rics (0 to 5 Years) and At-Risk Patients (6 to 49) Years) Aged Out No longer eligible b ased on patient's age to complete this topic RSV under 20 months Aged Out No longe r eligible based on patient's age to complete this topic Rotavirus Vaccines Aged Out No longer eligible based on patient's age to complete this topic
--- OUTSIDE RECORDS SUMMARY | 2024-06-23 09:41 | XMS_ITS | Encounter Summary ---
Author Organization [employer] [facility] Address [address] [place] [address] Care Team Providers Care Pearl Diver Name Role Phone Unavailable Primary Care Provider Unavailabl e Encounter Details Date Type Department Care Team (Latest Contact Info) Description 03/27/2021 Abstract [facility] CONVERSIONS Dental, Provider, DDS Social History Tobacco Use Types Packs/Day Years Used Date Smoking Tobacco: Never Assessed Comments Unknown Sex and Gender Information Value Date Recorded Sex Assigned at Female 03/05/2022 10:20 AM EDT Legal Sex Female 10:20 AM EDT Gender Identity Female 03/05/2022 10:20 AM EDT Sexual Orientation Straight 03/05/2022 10 :20 AM EDT documented as of this encounter Plan of Treatment Not on file documented as of this encounter Visit Diagnoses Not on filedocumented in this encounter
== END 2024-06-23 10:11 | disposition home or self-care (01) ==
PROVIDERS: PCP Internal Medicine; Visit Provider Internal Medicine
DX: Z00.00 Encounter for general adult medical examination without abnormal findings (principal); R07.1 Chest pain on breathing; Z23 Encounter for immunization

== ENCOUNTER → 2024-06-23 09:07 | Outpatient (BNVA) | payer MEDICARE, MEDICAID, SELFPAY | PROVIDERS: PCP Internal Medicine; Visit Provider Internal Medicine | DX: Z00.00 Encounter for general adult medical examination without abnormal findings (principal); Z23 Encounter for immunization; R07.1 Chest pain on breathing | CPT/HCPCS: 90471; 90677; 96127; 99397 ==

== ENCOUNTER 2024-07-14 08:42 | Outpatient (REF) | payer MEDICARE, MEDICAID, SELFPAY ==
--- OUTSIDE RECORDS SUMMARY | 2024-07-14 09:30 | XMS_ITS | Clinical Summary ---
Author Organization [employer] Address [address] [place] [address] Care Team Providers Care Motorcycle Designer Name Role Phone Unavailable Primary Care Provider [...]
--- OUTSIDE RECORDS SUMMARY | 2024-07-14 09:30 | XMS_ITS | Encounter Summary ---
Author Organization [employer] Address [address] [facility] [address] [place] [address] Care Team Providers Care Project Engineering Director Name Role Phone Unavailable Primary Care Provider Unavailabl e Encounter Details Date Type Department Care Team (Latest Contact Info) Description 03/27/2021 Abstract [facility] CONVERSIONS Dental, Provider, DDS Social History [...]
[2024-07-14 11:08] LABS: Alanine Aminotransferase 22 U/L (0-31); Albumin Level 4.3 g/dL (3.5-5.0); Alkaline Phosphatase 89 U/L (39-117); Anion Gap 10 (12-20); Aspartate Amino Transferase 31 U/L (5-31); Bilirubin Total 0.5 mg/dL (0.0-1.0); Blood Urea Nitrogen 12 mg/dL (9-16); Calcium 9.1 mg/dL (8.4-10.2); Carbon Dioxide 29 mmol/L (22-29); Chloride 108 mmol/L (96-108); Cholesterol 149 mg/dL (<200); Estimated Glomerular Filt Rate > 60; Glucose Fasting 87 mg/dL (60-99); HDL Cholesterol 44 mg/dL (>40); LDL Cholesterol Calculated 78 mg/dL (<100); Potassium 4.1 mmol/L (3.3-5.1); Sodium 143 mmol/L (135-145); Total Protein 7.7 g/dL (6.5-8.0); Triglycerides 139 mg/dL (<150)
[2024-07-14 11:26] LABS: Thyroid Stimulating Hormone 3.71 uIU/mL (0.32-4.0); Vitamin D 25-OH Total 47.4 ng/mL (>30)
== END 2024-07-14 08:43 | disposition home or self-care (01) ==
LOC: HO.10HDL 08:42
PROVIDERS: Visit Provider Internal Medicine
DX: Z00.00 Encounter for general adult medical examination without abnormal findings (principal); E55.9 Vitamin D deficiency, unspecified; E06.3 Autoimmune thyroiditis
CPT/HCPCS: 36415; 80053; 80061; 82306; 84443

== ENCOUNTER 2024-07-23 08:05 | Outpatient (REF) | payer MEDICARE, MEDICAID, SELFPAY ==
--- OUTSIDE RECORDS SUMMARY | 2024-07-23 08:11 | XMS_ITS | Clinical Summary ---
Author Organization [employer] Address [address] [facility] [address] [place] [address] Care Team Providers Care Director Of Graduate Medical Education Name Role Phone Unavailable Primary Care Provider [...]
--- OUTSIDE RECORDS SUMMARY | 2024-07-23 08:11 | XMS_ITS | Encounter Summary ---
Author Organization [employer] Address [address] [facility] [address] [place] [address] Care Team Providers Care Stockroom Helper Name Role Phone Unavailable Primary Care Provider Unavailabl e Encounter Details Date Type Department Care Team (Latest Contact Info) Description 03/27/2021 Abstract [facility] CONVERSIONS Dental, Provider, DDS Social History [...]
== END 2024-07-23 08:06 | disposition home or self-care (01) ==
LOC: HO.MAMMO 08:05
PROVIDERS: PCP Internal Medicine; Visit Provider Internal Medicine
DX: Z12.31 Encounter for screening mammogram for malignant neoplasm of breast (principal)
CPT/HCPCS: 77063; 77067

== ENCOUNTER → 2024-07-23 08:10 | Outpatient (BNV) | payer MEDICARE, MEDICAID, SELFPAY | PROVIDERS: PCP Internal Medicine; Visit Provider Internal Medicine | DX: Z12.31 Encounter for screening mammogram for malignant neoplasm of breast (principal) | CPT/HCPCS: 77063; 77067 ==

== ENCOUNTER 2024-07-27 10:05 | Outpatient (REF) | payer MEDICARE, MEDICAID, SELFPAY ==
[2024-07-27 12:08] LABS: Appearance Urine Cloudy; Color Urine Yellow; Glucose Urine UA Negative (Negative); Leukocyte Esterase Urine Large (3+) (Negative); Nitrite Urine Negative (Negative); PH 6.5 (5.0-9.0); Specific Gravity - Urine 1.015 (1.005-1.025); UMIC TRIGGER UACC YES; Urine Blood Moderate (2+) (Negative); Urine Ketones Negative (Negative); Urine Protein 30 (1+) mg/dL (Neg-Trace)
[2024-07-27 12:11] LABS: Bacteria Urine 4+ (None Seen); Hyaline Casts Urine 0-2 /LPF (0-2); RBC Urine >20 /HPF (0-2); Squamous Epithelial Cell Urine 0-2 /HPF (0-2); UACC Culture Trigger YES; WBC Urine >50 /HPF (0-5)
== END 2024-07-27 10:06 | disposition home or self-care (01) ==
LOC: HO.LAB 10:05
PROVIDERS: PCP Internal Medicine; Visit Provider Internal Medicine
DX: R30.9 Painful micturition, unspecified (principal)
CPT/HCPCS: 81001; 81003; 87086; 87088; 87186